=== PATIENT | male | born 1985 | race African-American/Black ===

== ENCOUNTER 2024-03-28 01:55 | Emergency (ER) | payer MEDICAID, OTHER ==
[~2024-03-28] VITALS: Ht 177.8 cm; Wt 95.0 kg
[2024-03-28 01:56] VITALS: O2SAT 97
[2024-03-28] MEDS: SODIUM CHLORIDE 0.9% 1,000 ML IV ONE (02:26)
[2024-03-28] MEDS: ONDANSETRON HCL 4MG/2ML INJ IV ONE (02:26)
[2024-03-28 03:03] LABS: BG BASE EXCESS -4.1 mmol/L (-2.0-2.0); BG CARBOXYHEMOGLOBIN 2.3 % (0.5-1.5); BG DEOXYHEMOGLOBIN 3.2 % (0.0-5.0); BG FRACTION INSPIRED OXYGEN 28; BG HCO3 ACT 22.2 mmol/L (22.0-26.0); BG METHEMOGLOBIN 0.2 % (0.0-1.5); BG OXYGEN SATURATION 96.7 % (92.0-98.5); BG OXYHEMOGLOBIN 94.3 % (94.0-97.0); BG PCO2 44.7 mmHg (35.0-45.0); BG PH 7.313 (7.350-7.450); BG PO2 83.8 mmHg (75.0-100.0); BG SAMPLE SITE RIGHT RADIAL; BG TOTAL HEMOGLOBIN 13.5 g/dL (12.0-18.0); BG VENT MODE NASAL CANNULA
[2024-03-28 03:09] LABS: BASOPHILS % 0.4 % (0.0-2.0); EOSINOPHILS % 1.4 % (0.0-5.0); HEMATOCRIT. 41.2 % (42.0-52.0); LYMPHOCYTES % 16.2 % (20.0-50.0); MEAN CORPUSCULAR HEMOGLOBIN 30.7 pg (28.0-32.0); MEAN CORPUSCULAR VOLUME 90.4 fL (80.0-94.0); MEAN PLATELET VOLUME 6.9 fl (7.4-10.4); MONOCYTES % 5.9 % (2.0-8.0); NEUTROPHILS % 76.1 % (40.0-76.0); PLATELET 361 x1000/uL (130-400); RED BLOOD CELL COUNT 4.55 mill/uL (4.7-6.1); RED CELL DISTRIBUTION WIDTH 12.8 % (11.6-14.6); WHITE BLOOD COUNT 6.7 x1000/uL (4.5-11.0)
[2024-03-28 03:17] LABS: CHLORIDE 104 mEq/L (98-107); POTASSIUM 3.2 mEq/L (3.5-5.1); SODIUM 137 mEq/L (136-145)
[2024-03-28 03:18] LABS: CARBON DIOXIDE 24 mEq/L (21-32)
[2024-03-28 03:23] LABS: CREATININE 0.9 mg/dL (0.6-1.3); ETHANOL BLOOD 176 mg/dL (<10); GLUCOSE 111 mg/dL (70-105); UREA NITROGEN BLOOD 14 mg/dL (9-23)
[2024-03-28 03:24] LABS: AMMONIA < 17 uMol/L (<32)
[2024-03-28 03:25] LABS: ACETAMINOPHEN 3 ug/mL (10-30); ALANINE AMINOTRANSFERASE 29 IU/L (10-49); ALBUMIN 4.5 g/dL (3.2-4.8); ASPARTATE AMINOTRANSFERASE 29 IU/L (<34); BILIRUBIN TOTAL 0.3 mg/dL (0.1-1.0); CREATINE KINASE 304 IU/L (46-171); LACTIC ACID 2.3 mmol/L (0.4-2.0); PROTEIN TOTAL 7.1 g/dL (6.0-8.3)
[2024-03-28 03:28] LABS: TROPONIN I HIGH SENSITIVITY < 4 ng/L (3.0-53)
[2024-03-28 06:00] VITALS: BP 128/88; PULSE 87; RESP 16; TEMP 98.2
== END 2024-03-28 07:16 | disposition home or self-care (01) ==
LOC: ER 02:06
DX: R53.1 Weakness (principal); R41.82 Altered mental status, unspecified
CPT/HCPCS: 80053; 80307; 80329; 80320; 82140; 82550; 82962; 83605; 85025; 84484; 36415; 71045; 70450; 82805; 82375; 96361; 96374; 99285; 36600; J2405; J7030; Z7610 ×2; G0480